=== PATIENT | female | born 1975 | race Caucasian/White ===

== ENCOUNTER 2025-02-28 18:52 | Emergency (ER) | payer MEDICAID ==
[~2025-02-28] VITALS: Ht 165.1 cm; Wt 90.0 kg
[2025-02-28 19:00] VITALS: TEMP 97.8
--- NOTE | 2025-02-28 19:07 | Physician Documentation ---
History of Present Illness ~ General Chief Complaint: Multiple Medical Complaints Stated Complaint: ABDOMINAL PAIN Time Seen by MD: 22:44 History of Present Illness Initial Comments MSE: Patient is a 49-year-old female that presents to the emergency department for evaluation of nausea diarrhea been generally feeling unwell x2 days. Patient reports that she was seen recently and evaluated at a doctor's office and told that she could possibly be that she needed to have lab work done. Patient reports that she has had a hysterectomy and she is 49 years old believe that she is postmenopausal. Patient reports that she has also had episodes of fever chills at night reports that cancer runs on both sides of her family and she is very concerned. HPI: The patient tells me that she had a recent positive test at urgent care. She is not sexually active. She is postmenopausal. She did have surgery for uterine prolapse. She reports having general malaise over the past several days. This includes night sweats and soaking the sheets, intermittent nausea, and increased fatigue. Denies any abdominal pain. No urinary symptoms. No vaginal symptoms. She does have chronic low back pain and sciatica. She does have bipolar disorder and has been off of her meds for a couple of weeks. She has an appointment with a new psychiatrist, recently just moved to the area. Medication Reconciliation Allergies: Coded Allergies: celecoxib (Verified Allergy, Intermediate, 02/28/25) Review of Systems ROS As stated above in the HPI, otherwise all systems are reviewed and negative. Constitutional: Reports: chills, fever Musculoskeletal: Reports: back pain Physical Exam Physical Exam Vital Signs: Temperature: 97.8, Source: Temporal, Heart Rate: 80, Respiratory Rate: 18, BP: 125/86, Pulse Oximetry: 97, Weight: 90.000 Oxygen Flow Rate: 0 Physical Exam General: This is a pleasant middle-aged woman, not in distress HEENT: Atraumatic, oropharynx is moist Heart: Regular rate and rhythm, normal-appearing peripheral perfusion Lungs: normal work of breathing, normal oxygen saturation on room air Abdomen: Soft, nondistended, nontender all quadrants Neuro: Alert and oriented Psychiatric: Does appear mildly anxious and has slightly pressured speech, is cooperative Progress Results/Orders Results/Orders Orders - PARISA GONZALEZ MD Luteinizing Hormone (03/01/25 00:17) Completed Orders - PARISA GONZALEZ MD Diazepam Tablet (Valium Tablet) (03/01/25 00:30) Medications Received in ER Medications (Trade) Dose Ordered Sig/Xuan Route PRN Reason Start Time Stop Time Status Last Admin Dose Admin (Valium tablet) 10 mg ONCE ONCE PO 03/01/25 00:30 03/01/25 00:31 DC 03/01/25 00:39 10 MG Vital Signs 02/28/25 02/28/25 02/28/25 02/28/25 19:00 22:45 22:48 23:58 Temp 97.8 Pulse 80 60 62 Resp 18 16 16 B/P (MAP) 125/86 113/63 (80) 105/59 (74) Pulse Ox 97 100 98 O2 Flow Rate 0 03/01/25 00:39 Resp 16 Laboratory Tests Test 02/28/25 19:04 02/28/25 20:04 03/01/25 00:38 Urine Specimen Description Non-specified Urine Color Yellow Urine Clarity Clear Urine pH 5.5 Urine Specific [place] 1.025 Urine Protein Negative Urine Glucose (UA) Negative Urine Ketones Negative Urine Occult Blood Trace-intact Urine Nitrite Negative Urine Bilirubin Negative Urine Urobilinogen 0.2 Urine Leukocyte Esterase Negative Urine RBC 0-2 Urine WBC 0-4 Urine Squamous Epithelial Cells None seen Urine Bacteria Few Urine Culture Indicated Not ind Volume Urine Centrifuged 10 ml Urine HCG, Qualitative Negative Urine Comment White Blood Count 4.1 L Red Blood Count 4.71 Hemoglobin 13.0 Hematocrit 39.3 Mean Corpuscular Volume 83.3 Mean Corpuscular Hemoglobin 27.7 Mean Corpuscular Hemoglobin Concent 33.2 Red Cell Distribution Width 14.0 Platelet Count 171 Mean Platelet Volume 9.5 Neutrophils (%) (Auto) 80.6 H Lymphocytes (%) (Auto) 16.4 L Monocytes (%) (Auto) 2.5 Eosinophils (%) (Auto) 0.2 Basophils (%) (Auto) 0.3 Neutrophils # (Auto) 3.3 Lymphocytes # (Auto) 0.7 L Monocytes # (Auto) 0.1 Eosinophils # (Auto) 0.0 Basophils # (Auto) 0.0 CBC Comment Sodium Level 144 Potassium Level 3.8 Chloride Level 111 H Carbon Dioxide Level 26.8 Anion Gap 6 L Blood Urea Nitrogen 14 Creatinine 0.51 Estimated GFR/1.73 m2 > 90 BUN/Creatinine Ratio 27.5 H Glucose Level 169 H Calcium Level 9.2 Total Bilirubin 0.4 Aspartate Amino Transf (AST/SGOT) 19 Alanine Aminotransferase (ALT/SGPT) 24 Alkaline Phosphatase 98 Total Protein 6.5 Albumin 3.6 Globulin 2.9 Albumin/Globulin Ratio 1.2 HCG Beta Subunit 6 Chemistry Comments Medical Decision Making Assessment The patient presents with multiple complaints including a positive test. Per her history and exam, it seems very unlikely she is , but she does have some symptoms that could represent hormonal changes or menopause type symptoms. Laboratory testing was obtained which is grossly unremarkable including no significant dehydration. No evidence of UTI. She has a very slightly elevated hCG level. This level seems most consistent with hormonal changes related to her age and menopause. She has no other findings to suggest a more dangerous process at this time. An LH level was sent and is pending, to help her primary care doctor confirmed that this is related to hormonal changes. She was given a muscle relaxant to help her sleep tonight. She was not interested in any further medication treatment for her bipolar disorder at this time. She has outpatient follow-up scheduled. No dangerous medical or surgical emergency identified, and so she will be discharged home with symptomatic treatment and outpatient follow up. Departure Time of Disposition: 00:33 Disposition: 01 HOME / SELF CARE / HOMELESS Impression: Primary Impression: Elevated serum hCG in female, not Additional Impression: Insomnia Condition: Stable Discharge Instructions: Insomnia Referrals: NO PRIMARY CARE PROVIDER (PCP) Education Educated: Patient Educated regarding: diagnosis, need for follow up Signature Scribe Signature: na Attestation: GERA Snow Feb 28, 2025 19:07 PARISA GONZALEZ MD Mar 01, 2025 00:15
[2025-02-28 20:20] LABS: MEAN PLATELET VOLUME 9.5 FL (7.4-10.4); RED CELL DISTRIBUTION WIDTH 14.0 % (11.5-14.5)
[2025-02-28 20:48] LABS: CREATININE 0.51 MG/DL (0.40-0.90); TOTAL CARBON DIOXIDE 26.8 MMOL/L (24-32); eCRCL 117 ML/MIN; eGFR > 90 ML/MIN
[2025-02-28 21:17] LABS: LEUKOCYTE ESTERASE ,URINE NEGATIVE (Neg); NITRITES, URINE NEGATIVE (Neg); OCCULT BLOOD,URINE TRACE-INTACT (Neg)
[2025-02-28 21:24] LABS: UA COLLECTION TYPE NON-SPECIFIED
[2025-02-28 21:26] LABS: SQUAMOUS EPITHELIAL CELL,UR NONE SEEN /LPF (FEW)
[2025-02-28 23:34] LABS: URINE HCG NEGATIVE (NEG)
[2025-02-28 23:58] VITALS: BP 105/59; PULSE 62; O2SAT 98
[2025-03-01 00:39] VITALS: RESP 16
== END 2025-03-01 00:48 | disposition home or self-care (01) ==
LOC: ER 18:53
DX: R79.89 Other specified abnormal findings of blood chemistry (principal); G47.00 Insomnia, unspecified; F31.9 Bipolar disorder, unspecified
CPT/HCPCS: 36415; 80053; 81001; 81025; 83002; 84702; 85025; 99283

== ENCOUNTER 2025-04-07 14:34 | Outpatient (CLI) | payer MEDICAID ==
--- NOTE | 2025-04-07 16:32 | RADIOLOGY REPORT ---
PROCEDURE: MR MRI LUMBAR SPINE Indication: LOW BACK PAIN COMPARISON: None TECHNIQUE: Multiplanar multisequence images of the the lumbar spine are obtained. FINDINGS: For the purpose of this examination, there are 5 lumbar vertebral body types counting from the lumbosacral junction. Lumbar vertebral body heights are maintained. Moderate multilevel disc space narrowing and desiccation. T2/stir bright lesion in the left L5 pedicle measuring 9 mm. Conus terminates at the L1 level. L1-2: 2 mm disc protrusion. Xlmf-yu-uaogweds facet and flavum hypertrophy. No spinal canal stenosis. Moderate right and mild left neural foraminal stenosis. L2-3: 3 mm disc protrusion. Moderate facet and flavum hypertrophy. No spinal canal stenosis. Bwwr-ep-ukuhspnt left and mild right neural foraminal stenosis. L3-4: 2 mm disc protrusion. Moderate facet and flavum hypertrophy thecal sac measures 7 mm AP. Moderate spinal canal stenosis. Moderate bilateral neural foraminal stenosis. L4-5: 3 mm disc protrusion. Moderate to severe facet and flavum hypertrophy. Thecal sac measures 6 mm AP. Moderate spinal canal stenosis. Moderate bilateral neural foraminal stenosis. Bilateral facet joint effusions, xjvg-gdlqupj-xhuh-right. L5-S1: 3 mm disc protrusion. Moderate facet and flavum hypertrophy. Thecal sac measures 8 mm AP. Otxd-fc-ycjiutzd spinal canal stenosis. Rmlv-zk-luiopobp bilateral neural foraminal stenosis IMPRESSION: Moderate lumbar degenerative disc disease. Moderate spinal canal stenosis at L3-4, L4-5. Ffns-af-hmozvvxu spinal canal stenosis L5-S1. Multilevel neural foraminal stenosis as described above. T2 bright lesion within the left L5 pedicle measuring 9 mm which could be secondary to degenerative changes from facet hypertrophy, atypical hemangioma, metastases, myeloma. Correlate clinically. MRI lumbar spine with contrast recommended to exclude aggressive process.
--- NOTE | 2025-04-07 16:47 | RADIOLOGY REPORT ---
EXAM: CT CT PELVIS INDICATION: PELVIC AND PERINEAL PAIN UNSPECIFIED TECHNIQUE: Axial images of pelvis without contrast have been obtained along with coronal and sagittal reformatted images. All CT scans at this facility use dose modulation, iterative reconstruction, and/or weight based dosing when appropriate to reduce radiation dose to as low as reasonably achievable. COMPARISON: MR MRI LUMBAR SPINE on DOS: 04/07/25 FINDINGS: BONES: No CT evidence of an acute fracture or aggressive osseous lesion. MUSCLES: No abnormal attenuation. JOINT SPACES: No joint effusion. Severe degenerative change of the right hip with a jbof-rq-iffi contact. TENDONS/LIGAMENTS: Intact. OTHER: Mild stool burden. Hysterectomy. Possible small 2 mm layering bladder stone (sagittal image 79). IMPRESSION: 1. Severe degenerative change of the right hip with a hgpl-jg-arzn contact. 2. No CT evidence of acute fracture. 3. Possible small 2 mm layering bladder stone
== END 2025-04-07 23:59 | disposition home or self-care (01) ==
LOC: RAD 14:34
PROVIDERS: ATTEND Nurse Practitioner Adult Health
DX: M51.27 Other intervertebral disc displacement, lumbosacral region (principal); M47.816 Spondylosis without myelopathy or radiculopathy, lumbar region; R10.20 Pelvic and perineal pain unspecified side; Z90.710 Acquired absence of both cervix and uterus; M16.11 Unilateral primary osteoarthritis, right hip; M47.27 Other spondylosis with radiculopathy, lumbosacral region; M48.07 Spinal stenosis, lumbosacral region
CPT/HCPCS: 72148; 72192